=== PATIENT | female | born 1955 | race Caucasian/White ===

== ENCOUNTER 2016-12-15 07:26 | Day surgery (SDC) | payer OTHER ==
[~2016-12-15] VITALS: Ht 170.2 cm; Wt 81.2 kg
[~2016-12-15 07:26] MED LIST: ALOE VERA; AMPICILLIN TRI500 MG PO; ARMOUR THYROID15 MG PO; ATIVAN0.5 MG PO; FISH OIL 1,0001 EAC7 PO; FLEXERIL5 MG PO; KENALOG,ARISTOC80 GM TP; PEPPERMINT; ULTRAM50 MG PO
[2016-12-15 08:44] VITALS: BP 123/80
[2016-12-15 10:55] VITALS: BP 125/83
[2016-12-15 11:48] VITALS: BP 124/83
== END 2016-12-15 12:00 | disposition home or self-care (01) ==
LOC: SDC 07:26
PROC: 0UBC7ZX Excision of Cervix, Via Natural or Artificial Opening, Diagnostic (ICD-10-PCS; principal; 2016-12-15)
DX: D06.9 Carcinoma in situ of cervix, unspecified (principal); N88.2 Stricture and stenosis of cervix uteri; E03.9 Hypothyroidism, unspecified; Z83.3 Family history of diabetes mellitus; Z80.52 Family history of malignant neoplasm of bladder; Z80.3 Family history of malignant neoplasm of breast; Z80.1 Family history of malignant neoplasm of trachea, bronchus and lung; K21.9 Gastro-esophageal reflux disease without esophagitis
CPT/HCPCS: 88307; J1100; J1885; J2250; J2405; J3010